=== PATIENT | female | born 1965 | race Caucasian/White ===

== ENCOUNTER 2017-05-26 09:11 | Day surgery (SDC) | payer BC ==
[~2017-05-26 09:11] MED LIST: LIDOCAINE HCL 1% MPF SOL ONE; PROPOFOL 500 MG/50 ML EMU IV ONE
[2017-05-26 11:00] VITALS: TEMP 97.6
[2017-05-26 11:16] VITALS: RESP 18
[2017-05-26 11:21] VITALS: BP 109/74; PULSE 65; O2SAT 99
== END 2017-05-26 11:32 | disposition home or self-care (01) ==
LOC: SURG 09:11
PROVIDERS: ATTEND Internal Medicine Gastroenterology
DX: Z12.11 Encounter for screening for malignant neoplasm of colon (principal); R19.7 Diarrhea, unspecified; K64.8 Other hemorrhoids; D12.3 Benign neoplasm of transverse colon
CPT/HCPCS: 45380; 99001; J2001; J2704